=== PATIENT | female | born 1995 | race Caucasian/White ===

== ENCOUNTER 2016-10-13 23:53 | Emergency (ER) | payer OTHER ==
[~2016-10-13] VITALS: Ht 165.1 cm; Wt 81.6 kg
[2016-10-14] MEDS ORDERED: LISINOPRIL10 M1 PO (00:12)
[2016-10-14] MEDS ORDERED: CLINDAMYCIN HC300 MG PO (00:20)
[2016-10-14] MEDS ORDERED: ANAPROX DS550 MG PO (00:20)
== END 2016-10-14 00:40 | disposition home or self-care (01) ==
LOC: ED 23:53
DX: K08.89 Other specified disorders of teeth and supporting structures (principal); Z79.899 Other long term (current) drug therapy

== ENCOUNTER 2019-06-09 00:18 | Emergency (ER) | payer SELFPAY ==
[~2019-06-09] VITALS: Ht 165.1 cm; Wt 90.7 kg
[~2019-06-09 00:18] MED LIST: ANAPROX DS550 MG PO; CLINDAMYCIN HC300 MG PO; LISINOPRIL10 M1 PO; METOPROLOL SUCC25 M2 PO; VISTARIL25 M2 PO
== END 2019-06-09 02:07 | disposition home or self-care (01) ==
LOC: ED 00:18
DX: F41.9 Anxiety disorder, unspecified (principal); Z88.0 Allergy status to penicillin; Z79.899 Other long term (current) drug therapy

== ENCOUNTER 2020-03-31 16:07 | Emergency (ER) | payer OTHER ==
[~2020-03-31] VITALS: Ht 165.1 cm; Wt 90.7 kg
[2020-03-31] MEDS ORDERED: ZITHROMAX250 MG PO (17:30)
== END 2020-03-31 17:35 | disposition home or self-care (01) ==
LOC: ED 16:07
DX: H66.90 Otitis media, unspecified, unspecified ear (principal); Z88.0 Allergy status to penicillin; Z79.899 Other long term (current) drug therapy

== ENCOUNTER 2020-10-21 22:48 | Emergency (ER) | payer OTHER ==
[~2020-10-21] VITALS: Ht 165.1 cm; Wt 86.2 kg
[~2020-10-21 22:48] MED LIST changes: +ZITHROMAX250 MG PO
== END 2020-10-22 00:01 | disposition home or self-care (01) ==
LOC: ED 22:48
DX: F41.0 Panic disorder [episodic paroxysmal anxiety] (principal); F17.200 Nicotine dependence, unspecified, uncomplicated; Z79.899 Other long term (current) drug therapy; Z88.0 Allergy status to penicillin

== ENCOUNTER 2021-06-18 09:56 | Emergency (ER) | payer OTHER ==
[~2021-06-18] VITALS: Ht 165.1 cm; Wt 93.4 kg
[2021-06-18] MEDS ORDERED: Motrin,Rufen800 MG PO (11:04)
== END 2021-06-18 11:16 | disposition home or self-care (01) ==
LOC: ED 09:56
DX: S90.31XA Contusion of right foot, initial encounter (principal); Z88.0 Allergy status to penicillin; Z79.899 Other long term (current) drug therapy; F17.200 Nicotine dependence, unspecified, uncomplicated; W20.8XXA Other cause of strike by thrown, projected or falling object, initial encounter; Y93.89 Activity, other specified; Y92.89 Other specified places as the place of occurrence of the external cause; Y99.8 Other external cause status